=== PATIENT | female | born 1950 | race Caucasian/White ===

== ENCOUNTER 2024-08-06 06:22 | Emergency (ER) | payer MEDICARE ==
[~2024-08-06] VITALS: Ht 162.6 cm; Wt 64.6 kg
[2024-08-06 06:35] VITALS: O2SAT 99
[2024-08-06 07:54] VITALS: TEMP 37
[2024-08-06 07:56] LABS: BASOPHILS % 0.4 % (0.0-2.0); EOSINOPHILS % 0.2 % (0.0-5.0); HEMATOCRIT. 40.8 % (36.0-48.0); HEMOGLOBIN. 13.2 g/dL (12.0-16.0); LYMPHOCYTES % 11.2 % (20.0-50.0); MEAN CORPUSCULAR HEMOGLOBIN 28.6 pg (28.0-32.0); MEAN CORPUSCULAR HGB CONC 32.4 g/dL (31.0-37.0); MEAN CORPUSCULAR VOLUME 88.1 fL (81.0-99.0); MEAN PLATELET VOLUME 8.4 fl (7.4-10.4); MONOCYTES % 5.1 % (2.0-8.0); NEUTROPHILS % 83.1 % (40.0-76.0); PLATELET 353 x1000/uL (130-400); RED BLOOD CELL COUNT 4.64 mill/uL (4.2-5.4); RED CELL DISTRIBUTION WIDTH 15.1 % (11.6-14.6); WHITE BLOOD COUNT 11.7 x1000/uL (4.5-11.0)
[2024-08-06] MEDS: ACETAMINOPHEN 325MG TABLET PO ONE (08:28)
[2024-08-06 08:30] VITALS: O2SAT 99
[2024-08-06 08:30] LABS: CHLORIDE 107 mEq/L (98-107); POTASSIUM 3.1 mEq/L (3.5-5.1); SODIUM 143 mEq/L (136-145)
[2024-08-06 08:31] LABS: CARBON DIOXIDE 28 mEq/L (21-32)
[2024-08-06] MEDS: LIDOCAINE 5% PATCH TOP SCH (08:31)
[2024-08-06 08:32] LABS: CALCIUM 9.6 mg/dL (8.7-10.4)
[2024-08-06 08:36] LABS: CREATININE 0.8 mg/dL (0.6-1.0); GLUCOSE 105 mg/dL (70-105)
[2024-08-06 08:37] VITALS: BP 158/98; PULSE 91; RESP 19
[2024-08-06 08:37] LABS: UREA NITROGEN BLOOD 15 mg/dL (9-23)
[2024-08-06] MEDS: KETOROLAC 15MG/ML VIAL IV ONE (08:37)
[2024-08-06 08:40] LABS: TROPONIN I HIGH SENSITIVITY < 4 ng/L (3.0-34)
[2024-08-06 10:58] LABS: TROPONIN I HIGH SENSITIVITY < 4 ng/L (3.0-34)
== END 2024-08-06 11:05 | disposition left against medical advice (07) ==
LOC: ER 06:22
DX: M25.512 Pain in left shoulder (principal); R94.31 Abnormal electrocardiogram [ECG] [EKG]; Z79.899 Other long term (current) drug therapy
CPT/HCPCS: 36415; 71045; 73030; 80048; 83880; 84484; 85025; 93005; 99285; J1885